=== PATIENT | male | born 1995 | race African-American/Black ===

== ENCOUNTER 2018-10-02 04:19 | Emergency (ER) | payer SELFPAY ==
[2018-10-02] MEDS ORDERED: HYDROmorphone 1 MG/ML Syringe IM ONE (05:10)
--- NOTE | 2018-10-02 06:25 | EDM.PDOC ---
ED HPI GENERAL MEDICAL PROBLEM - General Chief Complaint: Upper Extremity Injury/Pain Stated Complaint: right arm injury Time Seen by Provider: 10/02/18 04:30 Source of Information: Reports: Patient History Limitations: Reports: No Limitations, Intoxication, Language Barrier - History of Present Illness INITIAL COMMENTS - FREE TEXT/NARRATIVE: Patient is a 23-year-old who was brought in by some friends with chief complaint of right lower arm pain states that he was arm wrestling with some friends when he heard pop and snap he was brought in for evaluation and treatment Onset: Sudden Duration: Hour(s):, Constant Location: Reports: Upper Extremity, Right Quality: Reports: Ache, Sharp, Throbbing Severity: Moderate Improves with: Reports: Immobilization Worsens with: Reports: Movement Context: Reports: Trauma Associated Symptoms: Reports: Other (Patient is seen with right arm pain moderate to severe) Treatments [employer]: Reports: NSAIDS Right Arm Pain Score (Numeric/FACES): 15 - Related Data Allergies Allergy/AdvReac Type Severity Reaction Status Date / Time No Known Allergies Allergy Verified 10/02/18 04:21 Home Meds: Home Meds . [No Known Home Meds] 10/02/18 [History] Social & Family History - Tobacco Use Smoking Status *Q: Unknown Ever Smoked Review of Systems - Review of Systems Review Of Systems: See Below Constitutional: Reports: No Symptoms Eyes: Reports: No Symptoms Ears: Reports: No Symptoms Nose: Reports: No Symptoms Mouth/Throat: Reports: No Symptoms Respiratory: Reports: No Symptoms Cardiovascular: Reports: No Symptoms GI/Abdominal: Reports: No Symptoms Genitourinary: Reports: No Symptoms Musculoskeletal: Reports: Other (Right arm pain distal third of humerus) Skin: Reports: No Symptoms Neurological: Reports: No Symptoms Psychiatric: Reports: No Symptoms ED EXAM, GENERAL - Physical Exam Exam: See Below Exam Limited By: No Limitations General Appearance: Alert, WD/WN, No Apparent Distress Eye Exam: Bilateral Eye: EOMI, PERRL Ears: Normal External Exam, Normal Canal, Hearing Grossly Normal, Normal TMs Ear Exam: Bilateral Ear: Auricle Normal, Canal Normal, TM normal Nose: Normal Inspection, Normal Mucosa, No Blood Throat/Mouth: Normal Inspection, Normal Lips, Normal Teeth, Normal Gums, Normal Oropharynx, Normal Voice, No Airway Compromise Neck: Normal Inspection, Supple, Non-Tender, Full Range of Motion Respiratory/Chest: No Respiratory Distress, Lungs Clear, Normal Breath Sounds, No Accessory Muscle Use, Chest Non-Tender Cardiovascular: Normal Peripheral Pulses, Regular Rate, Rhythm, No Edema, No Gallop, No JVD, No Murmur, No Rub GI/Abdominal: Normal Bowel Sounds, Soft, Non-Tender, No Organomegaly, No Distention, No Abnormal Bruit, No Mass Back Exam: Normal Inspection, Full Range of Motion, NT Extremities: Normal Inspection, Arm Pain, Limited Range of Motion Neurological: Alert, Oriented, CN II-XII Intact, Normal Cognition, Normal Gait, Normal Reflexes, No Motor/Sensory Deficits Psychiatric: Normal Affect, Normal Mood Skin Exam: Warm, Dry, Intact, Normal Color, No Rash Lymphatic: No Adenopathy ED TRAUMA EXTREMITY PROCEDURES - Splinting Right Upper Extremity Splint Site: Right arm Pre-Procedure NV Status: Normal Post-Procedure NV Status: Normal Splint Material: Fiberglass Splint Design: Posterior Applied & Form Fitted By: Provider Provider Post-Splint Application NV Check: NV Status Normal Complications: No Progress/Comments: Custom Course - Vital Signs Last Recorded V/S: Last Vital Signs Temp 97.6 F 10/02/18 04:26 Pulse 70 10/02/18 04:42 Resp 18 10/02/18 04:26 BP 103/60 10/02/18 04:42 Pulse Ox 100 10/02/18 04:42 - Orders/Labs/Meds Meds: Medications Discontinued Medications Generic Name Dose Route Start Last Admin Trade Name Freq PRN Reason Stop Dose Admin Hydromorphone HCl 1 mg 10/02/18 05:10 10/02/18 05:14 Dilaudid IM 10/02/18 05:11 1 mg ONETIME ONE Administration Departure - Departure Time of Disposition: 06:28 Disposition: Home, Self-Care 01 Condition: Fair Clinical Impression: Closed right humeral fracture Qualifiers: Encounter type: initial encounter Humerus Location: distal Fracture morphology : unspecified fracture morphology Qualified Code(s): S42.401A - Unspecified fracture of lower end of right humerus, initial encounter for closed fracture - Discharge Information *PRESCRIPTION DRUG MONITORING PROGRAM REVIEWED*: No *COPY OF PRESCRIPTION DRUG MONITORING REPORT IN PATIENT VIBHA: No Instructions: Humerus Fracture Treated With Immobilization, [id number] Referrals: Aleksey Garcia MD [Primary Care Provider] - Forms: ED Department Discharge Care Plan Goals: Patient is a 23-year-old who was arm wrestling when he heard a snap and severe pain in the right arm x-rays obtained revealed distal third humerus fracture patient was placed on a posterior splint and sling placed patient was referred to Dr. Guidry at [facility] Wednesday call Wednesday for appointment [phone]. Patient will be given Tylenol No. 2 tablets every 6 hours for pain
== END 2018-10-02 06:53 | disposition home or self-care (01) ==
LOC: LL.ED 04:19
DX: S42.401A Unspecified fracture of lower end of right humerus, initial encounter for closed fracture (principal); X50.9XXA Other and unspecified overexertion or strenuous movements or postures, initial encounter; Y93.72 Activity, wrestling
CPT/HCPCS: 29105; 73060; 96372; 99283; J1170